=== PATIENT | female | born 2000 | race Hispanic/Latino ===

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

== ENCOUNTER 2021-10-07 10:53 | Emergency (ER) | payer OTHER, SELFPAY ==
--- NOTE | ~2021-10-07 | XR_ITS ---
EXAMINATION: XR chest 2V DATE: 10/07/2021 11:36 INDICATION: Midsternal chest pain TECHNIQUE: PA and lateral views of the chest are obtained. COMPARISON: 01/30/2020 FINDINGS: The lungs are free of acute opacities. No pleural effusion or pneumothorax. The cardiomedia stinal silhouette is normal. The visualized bones and soft tissues are unremarkable. Wire sternal sut ures are consistent with prior cardiac surgery. IMPRESSION: 1. No acute cardiopulmonary abnormality. Reviewed, dictated and finalized at location B.
[2021-10-07 11:02] VITALS: BP 112/66; PULSE 69; RESP 16; TEMP 36.1; O2SAT 100
--- NOTE | 2021-10-07 11:13 | ED.ABDPAIN ---
HPI - Abdominal Pain General Chief Complaint: Abdominal Pain Stated Complaint: abd/chest pain Source: patient and RN notes reviewed Mode of arrival: ambulatory Limitations: no limitations Related Data Home Medications Medication Instructions Recorded Confirmed albuterol sulfate 90 mcg/actuation inhalation 10/07/21 aerosol inhaler aspirin 81 mg capsule mg 10/07/21 cetirizine 10 mg tablet mg 10/07/21 Allergies Allergy/AdvReac Type Severity Reaction Status Date / Time No Known Allergies Allergy Verified 01/30/20 09:16 Review of Systems Review of Systems: CONSTITUTIONAL: Denies malaise, chills, sweats, or fever. ENT: Denies rhinorrhea, congestion, sinus pain, otalgia or sore throat. CARDIOVASCULAR: Denies chest pain, palpitations, or edema. RESPIRATORY: Denies cough or dyspnea. GASTROINTESTINAL: Denies abdominal pain, nausea, vomiting, diarrhea, bloody, or mucous stools. GENITOURINARY: Denies dysuria or hematuria. MUSCULOSKELETAL: Denies myalgia. NEUROLOGIC: Denies headache. All systems reviewed & are unremarkable except as noted in HPI and below PMFSH Surgical History Surgical History (Updated 01/30/20 @ 09:43 by Lan Weaver, BELKIS) H/O heart surgery Social History Social History (Updated 01/30/20 @ 09:43 by Lan Weaver, BELKIS) Smoking status: Never smoker Comments At time of signature, agree with nursing past medical, surgical, social and family history. There is no relevant family history pertinent to the presenting complaint Exam Narrative: GENERAL: Well-appearing, well-nourished, and in no acute distress. HEAD: Normocephalic, atraumatic. EYES: PERRLA, conjunctivae clear, and EOMI. ENT: Nares clear, turbinates pink, no rhinorrhea or epistaxis. Mucous membranes moist. Oropharynx without edema, erythema, or lesions. Tonsils not enlarged and without exudate. NECK: Supple. No lymphadenopathy CHEST: Speaks in full sentences. No respiratory distress. HEART: Regular rate and rhythm. ABDOMEN: Soft, flat, nondistended, nontender. No guarding, rebound tenderness, or rigidity. No pulsatile masses. Bowel sounds present in all four quadrants. No organomegaly. Negative Almonte?s sign. No periumbilical tenderness. No Supra public tenderness or distension. Good femoral pulses bilaterally. No hernia noted. No scars or surface trauma. SKIN: Warm, dry, no rash. NEURO: Alert and oriented x3. PSYCH: Normal mood and affect Course Course Emergency Course: Patient is aware of diagnosis, understands and agrees to treatment plan. Anticipatory guidance given. Patient agrees to follow-up as directed and is aware of reasons to seek care at the emergency department. Portions of this record may have been created with voice recognition software Level of Care: Express Care Visit Vital Signs Vital signs: Vital Signs Temperature 96.9 F L 10/07/21 11:02 Pulse Rate 69 10/07/21 11:02 Respiratory Rate 16 10/07/21 11:02 Blood Pressure 112/66 10/07/21 11:02 Pulse Oximetry 100 10/07/21 11:02 Oxygen Delivery Room Air 10/07/21 11:02 Temperature 96.9 F L 10/07/21 11:02 Pulse Rate 69 10/07/21 11:02 Respiratory Rate 16 10/07/21 11:02 Blood Pressure 112/66 10/07/21 11:02 Pulse Oximetry 100 10/07/21 11:02 Oxygen Delivery Room Air 10/07/21 11:02 Reviewed. Critical Care Time Critical Care Time Critical Care Time: No Discharge Plan Discharge Prescriptions: No Action cetirizine 10 mg tablet aspirin 81 mg Capsule albuterol sulfate 90 mcg/actuation HFA aerosol inhaler INHALATION Follow-up/Referrals: Gerald,BETTINA Byers [Primary Care Provider] -
--- NOTE | 2021-10-07 11:21 | ECG_ITS ---
Measurements Intervals [place] Rate: 57 P: 40 DC: 138 QRS: 61 QRSD: 81 T: 55 QT: 441 QTc: 432 Interpretive Statements SINUS BRADYCARDIA LOW QRS VOLTAGE IN PRECORDIAL LEADS RIGHT VENTRICULAR CONDUCTION DELAY Electronically Signed On 10-07-2021 12:41:10 CDT by Jimmy Saucedo M.D.
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
--- NOTE | 2021-10-07 11:29 | PC.NURSE ---
in xray, ekg done
[2021-10-07] MEDS: KETOROLAC (*BKC) 60 MG/2 ML VIAL IM (11:35)
--- NOTE | 2021-10-07 12:00 | PC.NURSE ---
cnp consult via telephone with mate chief. terri alvarado
--- NOTE | 2021-10-07 13:12 | PC.NURSE ---
forging engineer in with pt and aware cardiology called back about 1302
== END 2021-10-07 13:20 | disposition home or self-care (01) ==
PROVIDERS: Emergency Provider Nurse Practitioner; PCP Registered Nurse
DX: R07.2 Precordial pain (principal)
CPT/HCPCS: 71046; 93005; 96372; 99213; G0463; J1885

== ENCOUNTER 2023-09-07 22:42 | Emergency (ER) | payer OTHER, SELFPAY ==
--- NOTE | ~2023-09-07 | XR_ITS ---
EXAMINATION: XR chest 2V Exam Date/Time: 09/07/2023 23:05 CDT HISTORY: cp, DIZZINESS, HEART SURGERY 2012 Comparison: 10/07/2021. RESULT: Lines, tubes, and devices: Intact sternotomy wires. Lungs and pleura: Clear. Cardiomediastinal silhouette: Stable. Other: No acute osseous or upper abdominal finding. IMPRESSION: No acute cardiopulmonary process. Reviewed, dictated and finalized at location K.
[2023-09-07 22:45] VITALS: BP 119/67; PULSE 71; RESP 16; TEMP 36.4; O2SAT 100
--- NOTE | 2023-09-07 22:48 | ECG_ITS ---
Test Date: 2023-09-07 22:50:58 Measurements Intervals [place] Rate: 70 P: 49 IN: 132 QRS: 60 QRSD: 90 T: 59 QT: 406 QTc: 439 Interpretive Statements SINUS RHYTHM INCOMPLETE RIGHT BUNDLE BRANCH BLOCK LOW QRS VOLTAGE IN PRECORDIAL LEADS BORDERLINE T WAVE ABNORMALITY- ANTERIOR LEADS BORDERLINE ECG No previous ECG available for comparison Electronically Signed On 09-08-2023 06:27:29 CDT by Demetrius Lackey D.O.
[2023-09-07 23:04] LABS: Basophils Absolute Auto 0.1 K/mm3 (0.0-0.1); Basophils Percent Auto 0.5 % (0.2-1.2); Eosinophils Absolute Auto 0.4 K/mm3 (0-0.3); Eosinophils Percent Auto 4.1 % (0-4.4); Hematocrit 37.6 % (37.0-47.0); Hemoglobin 12.6 g/dL (12.0-15.0); Immature Granulocyte Absolute 0.02 K/mm3 (0.00-0.031); Immature Granulocyte Percent A 0.2 % (0-0.5); Lymphocytes Absolute Auto 3.08 K/mm3 (0.9-3.2); Lymphocytes Percent Auto 29.8 % (18.3-44.2); Mean Corpuscular HGB Conc 33.5 g/dl (32-36); Mean Corpuscular Hemoglobin 29.4 pg (26-34); Mean Corpuscular Volume 87.6 fl (80-100); Mean Platelet Volume 11.2 fl (7.4-10.4); Monocytes Absolute Auto 0.8 K/mm3 (0.1-0.6); Monocytes Percent Auto 7.6 % (2.6-8.5); Neutrophils Percent Auto 57.8 % (45.5-73.1); Platelet Count Result 254 k/mm3 (150-375); Red Blood Count 4.29 M/mm3 (4.2-5.4); Red Cell Distribution Width 13.6 % (11.5-14.5); White Blood Count 10.3 K/mm3 (4.5-10.0)
[2023-09-07 23:13] LABS: INR 1.1; Partial Thromboplastin Time 29.1 Seconds (22.3-36.8); Prothrombin Time 14.5 Seconds (11.1-14.7)
[2023-09-07 23:14] LABS: Alanine Aminotransferase 14 U/L (6-35); Albumin Level 4.3 g/dL (3.5-5.1); Alkaline Phosphatase 87 U/L (38-126); Anion Gap 12 mmol/L (4-12); Aspartate Amino Transferase 20 U/L (14-36); Bilirubin,Total 0.3 mg/dL (0.2-1.3); Blood Urea Nitrogen 12 mg/dL (7-17); Calcium 9.2 mg/dL (8.4-10.2); Carbon Dioxide 23 mmol/L (22-30); Chloride 103 mmol/L (98-107); Estimated Glomerular Filt Rate > 60; Glucose 113 mg/dL (65-110); Lipase 118 U/L (23-300); Potassium 3.3 mmol/L (3.4-5.0); Sodium 138 mmol/L (137-145)
[2023-09-07 23:26] LABS: Troponin I < 0.012 ng/mL (0.000-0.034)
--- NOTE | 2023-09-08 02:52 | ECG_ITS ---
Test Date: 2023-09-08 02:57:20 Measurements Intervals [place] Rate: 69 P: 26 [place]: 138 QRS: 59 QRSD: 77 T: 54 QT: 411 QTc: 443 Interpretive Statements SINUS RHYTHM RSR' IN V1 OR V2, PROBABLY NORMAL VARIANT LOW QRS VOLTAGE IN PRECORDIAL LEADS BORDERLINE ECG Compared to ECG 09/07/2023 22:50:58 NO SIGNIFICANT CHANGE Electronically Signed On 09-08-2023 06:28:41 CDT by Demetrius Lackey D.O.
--- NOTE | 2023-09-08 03:10 | ED.GENADULT ---
HPI - General Adult General Chief complaint: Weakness Stated complaint: weakness Time Seen by Provider: 09/08/23 02:59 History of Present Illness HPI narrative: This is a 23-year-old female presenting ED with a chief complaint of presyncope. Patient was making dinner in the kitchen when she felt lightheaded. Her father thought she is going to fall so he grabbed her sat her down in the living room. Her symptoms quickly resolved. Several hours later the patient's mother came home and insisted that she come to the emergency room for evaluation. At this time the patient is asymptomatic. The episode of dizziness was not associated with chest pain palpitations or difficulty breathing. Patient underwent Holter monitor testing (no findings) last year due to similar symptoms and has a auto porter that she has close follow-up. Related Data Home Medications Medication Instructions Recorded Confirmed albuterol sulfate 90 mcg/actuation inhalation 10/07/21 aerosol inhaler aspirin 81 mg capsule mg 10/07/21 cetirizine 10 mg tablet mg 10/07/21 Allergies Allergy/AdvReac Type Severity Reaction Status Date / Time No Known Allergies Allergy Verified 01/30/20 09:16 [facility] Surgical History Surgical History H/O heart surgery Social History Social History Smoking status: Never smoker Exam Narrative: APPEARANCE: No apparent distress. well-appearing Head: atraumatic. EYES: EOMI, NOSE: Atraumatic NECK: Trachea midline RESPIRATORY: No increased rate of breathing clear to auscultation CARDIOVASCULAR: RRR, no peripheral edema ABDOMINAL: Non-distended soft nontender MUSCULOSKELETAl: No obvious deformities NEURO: Alert. Moving 4/4 extremities SKIN:: Warm, dry. Normal color PSYCHIATRIC: Normal affect Course Vital Signs Vital signs: Vital Signs Temperature 97.6 F 09/07/23 22:45 Pulse Rate 71 09/07/23 22:45 Respiratory Rate 16 09/07/23 22:45 Blood Pressure 119/67 09/07/23 22:45 Pulse Oximetry 100 09/07/23 22:45 Temperature 97.6 F 09/07/23 22:45 Pulse Rate 71 09/07/23 22:45 Respiratory Rate 16 09/07/23 22:45 Blood Pressure 119/67 09/07/23 22:45 Pulse Oximetry 100 09/07/23 22:45 Medical Decision Making MDM Narrative Medical decision making narrative: -Course: 23-year-old female presenting after an episode of presyncope. Laboratory studies unremarkable including 2- troponins. Chest x-ray normal. EKG without high risk findings. Perc Negative. Patient discharged to follow-up with her auto porter. -DDX includes but is not limited to: Presyncope, dehydration, orthostatic hypotension cardiac dysrhythmia -Co-morbidities complicating care: Palpitations -Independent interpretation of studies: Labs reviewed. Imaging reviewed. Independent EKG interpretation: Rhythm [sinus], Rate [69], Pablo -[normal], WI -[normal], QRS [narrow], QTC [normal], T waves -[negative for concerning inversions], ST Segments - [Negative for concerning elevations] Final interpretations: [Normal Sinus Rhythm] -Shared decision making / Disposition: Discharge Vital Signs Vital Signs: Vital Signs Temperature 97.6 F 09/07/23 22:45 Pulse Rate 71 09/07/23 22:45 Respiratory Rate 16 09/07/23 22:45 Blood Pressure 119/67 09/07/23 22:45 Pulse Oximetry 100 09/07/23 22:45 Temperature 97.6 F 09/07/23 22:45 Pulse Rate 71 09/07/23 22:45 Respiratory Rate 16 09/07/23 22:45 Blood Pressure 119/67 09/07/23 22:45 Pulse Oximetry 100 09/07/23 22:45 Lab Data 09/07/23 22:58 09/07/23 22:58 Labs: Lab Results 09/07/23 09/08/23 Range/Units 22:58 02:57 WBC 10.3 H (4.5-10.0) K/mm3 RBC 4.29 (4.2-5.4) M/mm3 Hgb 12.6 (12.0-15.0) g/dL Hct 37.6 (37.0-47.0) % MCV 87.6 (80-100) fl MCH 29.4 (26-34) pg MCHC 33.5 (
[2023-09-08] MEDS: POTASSIUM CHLORIDE 20 MEQ ER TABLET 40 MEQ PO (03:30)
[2023-09-08 03:31] LABS: Troponin I < 0.012 ng/mL (0.000-0.034)
[2023-09-08 03:38] VITALS: BP 116/62; PULSE 89; RESP 15; O2SAT 100
== END 2023-09-08 03:39 | disposition home or self-care (01) ==
PROVIDERS: Emergency Provider Emergency Medicine; PCP Registered Nurse
DX: R55 Syncope and collapse (principal)
CPT/HCPCS: 36415; 71046; 80053; 83690; 84484; 85025; 85610; 85730; 93005; 99284; A9270